=== PATIENT | male | born 1995 | race Caucasian/White ===

== ENCOUNTER 2016-08-11 04:41 | Emergency (ER) | payer OTHER ==
[~2016-08-11] VITALS: Ht 177.8 cm; Wt 75.0 kg
[~2016-08-11 04:41] MED LIST: IBUP800T23 PO; ORPH100T PO; TRAM50 PO; Z.0.NO CURRENT MEDS
[2016-08-11 04:42] VITALS: BP 141/64; PULSE 84; RESP 16; TEMP 97.8; O2SAT 100
--- NOTE | 2016-08-11 05:23 | PD ---
HPI Chief Complaint: Musculoskeletal Complaint Time Seen by Provider: 05:17 Travel History International Travel<30 days: No Contact w/Intl Traveler<30days: No Traveled to known affect area: No History of Present Illness HPI 21-year-old white male presents to emergency Department with complaints of right knee pain. The patient states that he was at drill for the [employer] this week when he was practicing takedowns with another person. When they went to the ground he injured his right knee. He states that he felt something pop. He had pain initially. He states that it was not significant initially. He went on to continue doing physical activity during his weekend at [employer]. He did perform sprinting, long jump, an obstacle course. After performing these activities he has noted increasing pain in the back of his knee and the medial aspect. He has wrapped it with an Marlon bandage which seems oh bony aggravated it. He has difficulty placing his foot on the accelerator or on the brake. Pain is mild to moderate. He is taking ibuprofen. He denies any numbness or tingling. He denies prior injury. [facility] Past Medical History Medical History: Denies Significant Hx Immunizations Current: Yes Tetanus Vaccination: < 5 Years Past Surgical History Surgical History: No Previous Surgery Social History Alcohol Use: Yes Tobacco Use: No Substance Use: No Allergies-Medications (Allergen,Severity, Reaction): Coded Allergies: No Known Allergies (Verified , 08/11/16) Reported Meds & Prescriptions Reported Meds & Active Scripts Active Ultram (Tramadol HCl) 50 Mg Tab 50 Mg PO Q6H PRN FOR PAIN Norflex (Orphenadrine Citrate) 100 Mg Lanie 100 Mg PO BID Ibuprofen 800 Mg Tab 800 Mg PO TID Reported No Current Meds (Miscellaneous Medication) [facility] Review of Systems Except as stated in HPI: all other systems reviewed are Neg Physical Exam Narrative GENERAL: This is a well-nourished, well-developed patient, in no apparent distress. SKIN: No rashes, ecchymoses or lesions. Warm and dry. HEAD: Atraumatic. Normocephalic. EYES: PERRL, EOMI, no discharge or injection. No scleral icterus. EARS: Clear NOSE: Nasal turbinates appear normal. THROAT: Mucosa pink and moist. Airway patent. NECK: Trachea midline. supple, moves head freely. LUNGS: Clear to auscultation. CV: Regular in rhythm. ABDOMEN: Soft nontender. EXT: No clubbing cyanosis or edema. Examination the right lower extremity reveals no obvious joint effusion. He has full range of motion. There is no anterior posterior draw. No medial lateral collateral ligament instability. He has tenderness to the medial collateral ligament. There is tenderness to the hamstring insertion and the posterior popliteal fossa of the knee. No tenderness in the calf. He has intact sensation with good distal pulses. No Homans sign. Patient ambulates with a normal gait. Data Data Last Documented VS Vital Signs Date Time Temp Pulse Resp B/P Pulse Ox O2 Delivery O2 Flow Rate FiO2 08/11/16 04:42 97.8 84 16 141/64 100 Room Air MDM Medical Decision Making Medical Screen Exam Complete: Yes Emergency Medical Condition: Yes Medical Record Reviewed: Yes Differential Diagnosis MDM: High Differential diagnoses: Fracture, sprain, strain, dislocation, contusion, neurovascular injury Narrative Course Patient's exam is inconsistent with any bony injury. I suspect this is a sprain of the right knee without significant ligament or meniscal injury. The patient's encouraged to continue to take ibuprofen. Limit activities. Follow- up with a primary care doctor or orthopedics in 1-2 weeks. Diagnosis Primary Impression: Right knee sprain Patient Instructions: General Instructions Departure Forms: Tests/Procedures, Work Release Special Instructions: No work 2 days. Additional Instructions: Rest. Elevation. Ice packs for the next 3 days. 3 Advil 4 times daily. Follow-up with an orthopedist or your doctor in 1-2 weeks. Return to the ER if any problems Disposition: 01 DISCHARGE HOME Condition: Stable Dean [place] Aug 11, 2016 05:23
== END 2016-08-11 05:46 | disposition home or self-care (01) ==
LOC: NEPB 04:41
DX: S83.91XA Sprain of unspecified site of right knee, initial encounter (principal); X50.1XXA Overexertion from prolonged static or awkward postures, initial encounter; Y93.89 Activity, other specified; Y92.139 Unspecified place military base as the place of occurrence of the external cause; Y99.1 Military activity
CPT/HCPCS: 99283